=== PATIENT | male | born 1990 | race American Indian/Alaskan Native ===

== ENCOUNTER 2016-12-24 06:13 | Emergency (ER) | payer OTHER ==
[2016-12-24] MEDS ORDERED: ceFAZolin 2 GM in NACL 0.9% 100 ML IV ONE (06:24)
[2016-12-24] MEDS ORDERED: BOOSTRIX IM ONE (06:28)
[2016-12-24 06:37] LABS: Hematocrit 42.7 % (35.5-45.6); Hemoglobin 14.6 gm/dl (11.8-15.2); Mean Corpuscular HGB Conc 34 % (32-34); Mean Corpuscular Hemoglobin 30 pg (28-32); Mean Corpuscular Volume 89 fl (84-94); Platelet Count 174 K/mm3 (140-440); Red Blood Count 4.82 M/mm3 (3.65-5.03); Red Cell Distribution Width 13.2 % (13.2-15.2); White Blood Count 7.2 K/mm3 (4.5-11.0)
[2016-12-24] MEDS ORDERED: PERCOCET 5/325 ONE (06:41)
[2016-12-24 06:54] LABS: Anion Gap 25 mmol/L; BUN/Creatinine Ratio 9; Blood Urea Nitrogen 9 mg/dL (9-20); Calcium 9.2 mg/dL (8.4-10.2); Carbon Dioxide 21 mmol/L (22-30); Chloride 98.2 mmol/L (98-107); Glucose 120 mg/dL (75-100); Potassium 3.4 mmol/L (3.6-5.0); Sodium 141 mmol/L (137-145)
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
[2016-12-24] MEDS ORDERED: MORPHINE IV ONE (07:23)
[2016-12-24] MEDS ORDERED: PERCOCET 5/325 PO ONE (07:26)
[2016-12-24 09:24] VITALS: BP 137/88
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
== END 2016-12-24 09:24 | disposition home or self-care (01) ==
LOC: ED 06:13
DX: S41.102A Unspecified open wound of left upper arm, initial encounter (principal); W34.09XA Accidental discharge from other specified firearms, initial encounter; Y93.89 Activity, other specified; Y99.8 Other external cause status; Y92.89 Other specified places as the place of occurrence of the external cause
CPT/HCPCS: 36415; 73060; 80048; 85027; 86850; 86900; 86901; 90471; 90715; 96365; 96375; 99284; J0690; J2270